=== PATIENT | female | born 2005 | race Hispanic/Latino ===

== ENCOUNTER 2024-06-13 14:15 | Emergency (ER) | payer BC ==
--- OUTSIDE RECORDS SUMMARY | 2024-06-13 14:18 | XMS REPORT | Continuity of Care Document ---
Author Name Unknown Address [address] [facility] [address] [place] [address] [facility] thconnect Address [address] [facility] [address] [place] [address] Care Team Providers Care Engineering Model Maker Name Role Phone Pcp, Patient Does Not Have A Primary Care Physic elena Neo Gonsales Attending Clinician Unavailable MEDINA CARTWRIGHT Attending Clinician Unavailable Medina Cartwright PA-C Attending Clinician [phone] Unknown, Attending Attending Clinician Unavailab jimi SALMERON Attending Clinician Unavailable Laurent Hutchins Attending Clinician [phone] LAURENT PINO Attending Clinician Unavailable LEESA_GCBZW_Rajania_S Attending Clinician Unavaila Gabriela Mohamud Attending Clinician [phone] CARLOS_Tylor Admitting Clinician Unavailable LEESA_GCBZW_Kadiyala_S Admitting Clinician Unavaila ble Payers Payer Name Policy Type Policy Number Effective Date Expiration Date Source BLUE ESSENTIALS HMO [id number] 2023 00:00:00 [place] [id number] 2020 00:00:00 Blue Cross Blue Shield HMO 6 [id number] 2020 00:00:00 [facility] Problems Condition Name Condition Details Condition Category Status Onset Date Resolution Date Last Treatment Date Treating Clinician Comments Source [id number] Plantar wart Problem [facility] [id number] Acne vulgaris Problem [facility] [id number] ESTHER (generaliz ed anxiety disorder) Problem [facility] Acute lymphadeni tis Acute lymphadeni tis Problem [facility] Ulcer of mouth Mouth ulcers Problem [facility] Attention deficit disorder ADD (attention deficit disorder) Problem [facility] [id number] Unable to concentrat e Problem [facility] Allergies, Adverse Reactions, Alerts Allergy Name Allergy Type Status Severity Reaction(s) Onset Date Inactive Date Treating Clinician Comments Source NO KNOWN ALLERGIE S Drug Class Active [facility] Social History Social Habit Start Date Stop Date Quantity Comments Source Sexual orientation U [facility] History of Tobacco Use [facility] Sex Assigned At 2005 00:00:00 2005 00:00:00 [facility] Smoking Status Start Date Stop Date Source Tobacco smoking consumption unknown [facility] Never Smoker [facility] Medications Ordered Medication Name Filled Medication Name Start Date Stop Date Current Medication? Ordering Clinician Indication Dosage Frequency Signature (SIG) Comments Components Source Pseudoeph-B romphen-DM 30-2-10 MG/5ML Pseudoeph-B romphen-DM 30-2-10 MG/5ML 06-17 00:00: 00 06-24 00:00 :00 No 5{ml_as _needed } QID Pseudoeph- Bromphen-D M 30-2-10 MG/5ML Pseudoeph-B romphen-DM 30-2-10 MG/5ML Pseudoeph-B romphen-DM 30-2-10 MG/5ML 06-17 00:00: 00 06-24 00:00 :00 No 5{ml_as _needed } QID Pseudoeph- Bromphen-D M 30-2-10 MG/5ML Pseudoeph-B romphen-DM 30-2-10 MG/5ML Pseudoeph-B romphen-DM 30-2-10 MG/5ML 2-0 -29 00:00: 00 06-24 00:00 :00 No 5{ml_as _needed } QID Pseudoeph- Bromphen-D M 30-2-10 MG/5ML methylPREDN ISolone 4 MG methylPREDN ISolone 4 MG 0 - 00:00: 00 06-23 00:00 :00 No QD methylPRED NISolone 4 MG methylPREDN ISolone 4 MG methylPREDN ISolone 4 MG 0 06-17 00:00: 00 06-23 00:00 :00 No QD methylPRED NISolone 4 MG methylPREDN ISolone 4 MG methylPREDN ISolone 4 MG 0 06-17 00:00: 00 06-23 00:00 :00 No QD methylPRED NISolone 4 MG Polymyxin B-Trimethop rim 62220-3.1 UNIT/ML Polymyxin B-Trimethop rim 78372-6.1 UNIT/ML 0 04-08 00:00: 00 04-15 00:00 :00 No 1{drop_ into_af fected_ eye} QID Polymyxin B-Trimetho prim 68130-5.1 UNIT/ML Amoxicillin -Pot Clavulanate 875-125 MG Amoxicillin -Pot Clavulanate 875-125 MG 2020-09 00:00: 00 08-15 00:00 :00 No 1{table t} BID Medrol 4 MG Medrol 4 MG 2020-09 00:00: 00 08-11 00:00 :00 No Azithromyci n 250 MG Azithromyci n 250 MG 2020-09 00:00: 00 08-01 00:00 :00 No QD Azithromyc in 250 MG Escitalopra m Oxalate 10 MG Escitalopra m Oxalate 10 MG 12-15 00:00: 00 No 1{table t} QD traZODone HCl 50 MG traZODone HCl 50 MG 12-15 00:00: 00 No 1{table t_at_be dtime_a s_neede d} QD traZODone HCl 50 MG traZODone HCl 50 MG 2020-0 12-15 00:00: 00 No 1{table t_at_be dtime_a s_neede d} QD traZODone HCl 50 MG Escitalopra m Oxalate 10 MG Escitalopra m Oxalate 10 MG 2020-0 12-15 00:00: 00 No 1{table t} QD Escitalopr am Oxalate 10 MG traZODone HCl 50 MG traZODone HCl 50 MG 2020-0 12-15 00:00: 00 No 1{table t_at_be dtime_a s_neede d} QD traZODone HCl 50 MG Escitalopra m Oxalate 10 MG Escitalopra m Oxalate 10 MG 2020-0 12-15 00:00: 00 No 1{table t} QD Escitalopr am Oxalate 10 MG traZODone HCl 50 MG traZODone HCl 50 MG 2020-0 12-15 00:00: 00 No 1{table t_at_be dtime_a s_neede d} QD traZODone HCl 50 MG Escitalopra m Oxalate 10 MG Escitalopra m Oxalate 10 MG 12-15 00:00: 00 No 1{table t} QD Escitalopr am Oxalate 10 MG traZODone HCl 50 MG traZODone HCl 50 MG 2020-0 12-15 00:00: 00 No 1{table t_at_be dtime_a s_neede d} QD traZODone HCl 50 MG Escitalopra m Oxalate 10 MG Escitalopra m Oxalate 10 MG 2020-0 12-15 00:00: 00 No 1{table t} QD Escitalopr am Oxalate 10 MG traZODone HCl 50 MG traZODone HCl 50 MG 2020-0 12-15 00:00: 00 No 1{table t_at_be dtime_a s_neede d} QD traZODone HCl 50 MG Escitalopra m Oxalate 10 MG Escitalopra m Oxalate 10 MG 2020-0 12-15 00:00: 00 No 1{table t} QD Escitalopr am Oxalate 10 MG traZODone HCl 50 MG traZODone HCl 50 MG 2020-0 12-15 00:00: 00 No 1{table t_at_be dtime_a s_neede d} QD traZODone HCl 50 MG Escitalopra m Oxalate 10 MG Escitalopra m Oxalate 10 MG 2020-0 12-15 00:00: 00 No 1{table t} QD Escitalopr am Oxalate 10 MG Microgestin 1/20 1-20 MG-MCG Microgestin 1/20 1-20 MG-MCG No 1{table t} QD Microgestin 1/20 1-20 MG-MCG Microgestin 1/20 1-20 MG-MCG No 1{table t} QD Microgesti n /20 1-20 MG-MCG Microgestin 1/20 1-20 MG-MCG Microgestin 1/20 1-20 MG-MCG No 1{table t} QD Microgesti n /20 1-20 MG-MCG Microgestin 1/20 1-20 MG-MCG Microgestin 1/20 1-20 MG-MCG No 1{table t} QD Microgesti n /20 1-20 MG-MCG Microgestin 1/20 1-20 MG-MCG Microgestin 1/20 1-20 MG-MCG No 1{table t} QD Microgesti n 1/20 1-20 MG-MCG Microgestin 1/20 1-20 MG-MCG Microgestin 1/20 1-20 MG-MCG No 1{table t} QD Microgesti n /20 1-20 MG-MCG Microgestin 1/20 1-20 MG-MCG Microgestin 1/20 1-20 MG-MCG No 1{table t} QD Microgesti n 1/20 1-20 MG-MCG drospirenon e 3 mg-ethinyl estradiol 0.02 mg tablet TAKE 1 TABLET BY MOUTH EVERY DAY drospirenon e 3 mg-ethinyl estradiol 0.02 mg tablet TAKE 1 TABLET BY MOUTH EVERY DAY No drospireno ne 3 mg-ethinyl estradiol 0.02 mg tablet TAKE 1 TABLET BY MOUTH EVERY DAY [facility] Xeomin 100 unit intramuscul ar solution Inject 6 units by intramuscul ar route. Xeomin 100 unit intramuscul ar solution Inject 6 units by intramuscul ar route. No 6unit(s ) Xeomin 100 unit intramuscu lar solution Inject 6 units by intramuscu lar route. [facility] BD Luer-Lilibeth Syringe 3 mL 23 gauge x 1 1/2" USE DIRECTED BD Luer-Lilibeth Syringe 3 mL 23 gauge x 1 1/2" USE DIRECTED No BD Luer-Lilibeth Syringe 3 mL 23 gauge x 1 1/2" USE DIRECTED [facility] ondansetron 4 mg disintegrat ing tablet TAKE 1 TABLET BY MOUTH EVERY 8 HOURS NEEDED FOR NAUSEA AND VOMITING . ondansetron 4 mg disintegrat ing tablet TAKE 1 TABLET BY MOUTH EVERY 8 HOURS NEEDED FOR NAUSEA AND VOMITING . No ondansetro n 4 mg disintegra ting tablet TAKE 1 TABLET BY MOUTH EVERY 8 HOURS NEEDED FOR NAUSEA AND VOMITING . [facility] Vital Signs Vital Name Observation Time Observation Value Comments S ource BP Systolic 2024-06-06 00:00:00 124 mm[Hg] [facility] BMI (Body Mass Index) 2024-06-06 00:00:00 21.8 kg/m2 [facility] BP Diastolic 2024-06-06 00:00:00 84 mm[Hg] [facility] Height 2024-06-06 00:00:00 63 [in_i] [facility] Body Weight 2024-06-06 00:00:00 1972 [oz_av] [facility] BMI (Body Mass Index) 2023-12-07 00:00:00 20.8 kg/m2 [facility] BP Systolic 2023-12-07 00:00:00 115 mm[Hg] [facility] Body Weight 2023-12-07 00:00:00 1882 [oz_av] [facility] Height 2023-12-07 00:00:00 63 [in_i] [facility] BP Diastolic 2023-12-07 00:00:00 78 mm[Hg] [facility] Systolic blood pressure 2023-10-20 19:18:00 134 mm[Hg] [facility] Diastolic blood pressure 2023-10-20 19:18:00 83 mm[Hg] [facility] Heart rate 2023-10-20 19:18:00 96 /min [facility] Body temperature 2023-10-20 19:18:00 36.83 Alina [facility] Respiratory rate 2023-10-20 19:18:00 18 /min [facility] Body weight 2023-10-20 19:18:00 54.931 kg [facility] Oxygen saturation in Arterial blood by Pulse oximetry 2023-10-20 19:18:00 100 /min [facility] Height 2023-08-17 00:00:00 63 [in_i] [facility] BP Systolic 2023-08-17 00:00:00 113 mm[Hg] [facility] BMI (Body Mass Index) 2023-08-17 00:00:00 22.4 kg/m2 [facility] Body Weight 2023-08-17 00:00:00 2021 [oz_av] [facility] BP Diastolic 2023-08-17 00:00:00 76 mm[Hg] [facility] BMI 2023-08-06 16:02:00 21.87 kg/m2 [facility] Oxygen saturation in Arterial blood by Pulse oximetry 2023-08-06 16:02:00 99 /min [facility] Systolic blood pressure 2023-08-06 16:02:00 123 mm[Hg] [facility] Diastolic blood pressure 2023-08-06 16:02:00 83 mm[Hg] [facility] Heart rate 2023-08-06 16:02:00 90 /min [facility] Body temperature 2023-08-06 16:02:00 36.94 Alina [facility] Respiratory rate 2023-08-06 16:02:00 20 /min [facility] Body height 2023-08-06 16:02:00 160 cm [facility] Body weight 2023-08-06 16:02:00 55.991 kg [facility] BP Diastolic 2023-04-20 00:00:00 75 mm[Hg] [facility] BMI (Body Mass Index) 2023-04-20 00:00:00 4.5 kg/m2 [facility] Height 2023-04-20 00:00:00 63 [in_i] [facility] BP Systolic 2023-04-20 00:00:00 116 mm[Hg] [facility] Body Weight 2023-04-20 00:00:00 410 [oz_av] [facility] height 2022-09-30 12:00:00 64 [in_i] [facility] weight 2022-09-30 12:00:00 130 [lb_av] Comm on [facility] temperature 2022-09-30 12:00:00 98 [degF] Comm on [facility] bmi 2022-09-30 12:00:00 22.31 kg/m2 Comm on [facility] height 2022-06-17 10:00:00 64 [in_i] Commo n [facility] weight 2022-06-17 10:00:00 128 [lb_av] Comm on [facility] bmi 2022-06-17 10:00:00 21.97 kg/m2 Comm on [facility] height 2022-04-22 09:00:00 64 [in_i] Commo n [facility] weight 2022-04-22 09:00:00 128.6 [lb_av] Co mmon [facility] temperature 2022-04-22 09:00:00 97.0 [degF] Com mon [facility] bmi 2022-04-22 09:00:00 22.07 kg/m2 Comm on [facility] oximetry 2022-04-22 09:00:00 100 % Commo n [facility] respiratory rate 2022-04-22 09:00:00 18 /min Common [facility] blood pressure systolic 2022-04-22 09:00:00 123 mm[Hg] [facility] blood pressure diastolic 2022-04-22 09:00:00 76 mm[Hg] [facility] height 2022-04-08 16:20:00 64 [in_i] Commo n [facility] weight 2022-04-08 16:20:00 129 [lb_av] Comm on [facility] temperature 2022-04-08 16:20:00 98.1 [degF] Com [facility] bmi 2022-04-08 16:20:00 22.14 kg/m2 Comm on [facility] oximetry 2022-04-08 16:20:00 99 % Commo n [facility] respiratory rate 2022-04-08 16:20:00 16 /min [facility] blood pressure systolic 2022-04-08 16:20:00 108 mm[Hg] [facility] blood pressure diastolic 2022-04-08 16:20:00 63 mm[Hg] [facility] height 2022-01-19 14:30:00 64 [in_i] Commo n [facility] weight 2022-01-19 14:30:00 127 [lb_av] Comm on [facility] temperature 2022-01-19 14:30:00 98.1 [degF] Com mon [facility] bmi 2022-01-19 14:30:00 21.8 kg/m2 Commo n [facility] blood pressure systolic 2022-01-19 14:30:00 108 mm[Hg] [facility] blood pressure diastolic 2022-01-19 14:30:00 68 mm[Hg] [facility] height 2021-08-05 08:20:00 64 [in_i] Commo n [facility] weight 2021-08-05 08:20:00 126 [lb_av] Comm on [facility] temperature 2021-08-05 08:20:00 97.4 [degF] Com mon [facility] bmi 2021-08-05 08:20:00 21.63 kg/m2 Comm on [facility] bmi 2021-07-27 14:30:00 21.63 kg/m2 Comm on [facility] height 2021-07-27 14:30:00 64 [in_i] Commo n [facility] weight 2021-07-27 14:30:00 126 [lb_av] Comm on [facility] temperature 2021-07-27 14:30:00 98 [degF] Comm on [facility] Procedures Procedure Date / Time Performed Performing Clinician Source US, pelvis, transabdominal + transvaginal 2024-06-06 00:00:00 [facility] POCT TEST 2023-10-20 19:32:00 Raiza Cartwright [facility] POCT SARS-COV-2 ANTIGEN (BINAX NOW) 2023-10-20 19:32:00 Medina Cartwright [facility] POCT MOLECULAR FLU 2023-10-20 19:16:00 Unknown, Attend [facility] POCT SARS-COV-2 ANTIGEN (BINAX NOW) 2023-08-06 16:15:00 Laurent Pino [facility] POCT MOLECULAR FLU 2023-08-06 16:09:00 Unknown, Attend [facility] POCT MOLECULAR STREP 2023-08-06 16:06:00 Unknown, Attdash sargent [facility] Encounters Start Date/Time End Date/Time Encounter Type Admission Type Attending Clinicians Care Facility Care Department Encounter ID Source 2022-09-30 11:04[facility] [id number] [facility] 2022-06-28 10:54:01 [facility] [id number] [facility] 2022-06-17 09:31:01 Outpatient Gonsales, Neo [facility] [id number] [facility] 2022-04-01 16:12:01 Outpatient Gonsales, Neo [facility] [id number] [facility] 2022-01-28 13:36:01 Outpatient Gonsales, Neo [facility] [id number] [facility] 2022-01-19 07:16:00 Outpatient Gonsales, Neo [facility] [id number] [facility] 2021-10-14 14:36:36 Outpatient Gonsales, Neo [facility] [id number] [facility] 2021-10-14 14:14:15 Outpatient Gonsales, Neo [facility] [id number] [facility] 2021-10-14 12:41:58 Outpatient Gonsales, Neo [facility] [id number] [facility] 2021-10-14 12:35:27 Outpatient Gonsales, Neo [facility] [id number] [facility] 2021-10-14 12:33:36 Outpatient Gonsales, Neo [facility] STLC [id number] [facility] 2021-10-14 12:14:07 Outpatient Gonsales, Neo [facility] [id number] [facility] 2021-10-14 12:13:35 Outpatient Gonsales, Neo [facility] [id number] [facility] 2021-10-14 12:13:05 Outpatient Gonsales, Neo [facility] [id number] [facility] 2021-10-14 12:12:49 Outpatient Gonsales, Neo [facility] [id number] [facility] 2021-10-14 12:09:15 [facility] [id number] [facility] 2021-10-14 12:05:33 [facility] [id number] [facility] 2021-10-14 11:58:05 [facility] [id number] [facility] 2021-10-14 11:57:28 [facility] [id number] [facility] 2021-10-14 11:54:58 [facility] [id number] [facility] 2021-10-14 11:54:43 [facility] [id number] [facility] 2024-06-06 00:00:00 2024-06-06 00:00:00 Gabreila Sauceda MSN, MANAGEMENT TRAINEE, REMEDY DEVELOPER-C: [address], [place] [address] , Ph. [facility], Gabriela Sauceda, MSN, REMEDY DEVELOPER-C [id number] Critical access hospital [facility] 2023-12-07 00:00:00 2023-12-07 00:00:00 Gabriela Sauceda, MSN, MANAGEMENT TRAINEE, REMEDY DEVELOPER-C: [address], [place] [address] , Ph. [facility], Gabriela Sauceda, MSN, REMEDY DEVELOPER-C [id number] Critical access hospital [facility] 2023-10-20 13:00:00 2023-10-20 13:46:20 Outpatient MEDINA TAN [facility] [id number] [facility] 2023-10-20 13:00:00 2023-10-20 13:46:20 Urgent Care Medina Cartwright Unknown, Attending [facility] [id number] [facility] 2023-08-26 00:00:00 2023-08-26 00:00:00 Outpatient SISSON_C [facility] [id number] 2023-08-17 00:00:00 2023-08-17 00:00:00 Outpatient SISSON_C [facility] [id number] 2023-08-17 00:00:00 2023-08-17 00:00:00 Gabriela Sauceda, MSN, MANAGEMENT TRAINEE, REMEDY DEVELOPER-C: [address], [address], [place] [address] , Ph. [facility], Gabriela Sauceda, MSN, REMEDY DEVELOPER-C [id number] [facility] 2023-08-06 09:40:00 2023-08-06 10:00:00 Urgent Care Laurent Pino Unknown, Attending [facility] MEDICAL OFF[facility] BU[facility] [id number] [facility] 2023-08-06 09:40:00 2023-08-06 09:40:00 Outpatient LAURENT SANCHEZ [facility] [id number] [facility] 2023-07-19 00:00:00 2023-07-19 00:00:00 Outpatient GC_GCBZW_Ka diyala_S [facility] [id number] [facility] 2023-07-18 00:00:00 2023-07-18 00:00:00 Outpatient GC_GCBZW_Ka diyala_S [facility] [id number] [facility] 2023-04-20 00:00:00 2023-04-20 00:00:00 Outpatient SISSON_C [facility] [id number] [facility] 2023-04-20 00:00:00 2023-04-20 00:00:00 Gabriela Sauceda, MSN, MANAGEMENT TRAINEE, REMEDY DEVELOPER-C: [address], [address], [place] [address] , Ph. [facility], Gabriela Sauceda, MSN, REMEDY DEVELOPER-C [id number] [facility] 2022-10-26 00:00:00 2022-10-26 00:00:00 Outpatient SISSON_C [facility] [id number] [facility] 2022-09-30 00:00:00 2022-09-30 00:00:00 (TEL) STLMLC STLMLC [id number] [facility] 2022-09-30 00:00:00 2022-09-30 00:00:00 OFFICE VISIT ESTAB PT LEVEL 3 STLMLC STLMLC [id number] [facility] 2022-09-22 00:00:00 2022-09-22 00:00:00 (TEL) STLMLC STLMLC [id number] [facility] 2022-06-17 00:00:00 2022-06-17 00:00:00 OFFICE VISIT EST PT LEVEL 3 STLMLC STLMLC [id number] [facility] 2022-06-17 00:00:00 2022-06-17 00:00:00 (TEL) STLMLC STLMLC [id number] [facility] 2022-04-22 00:00:00 2022-04-22 00:00:00 PREV VISIT EST AGE 18-39 STLMLC STLMLC [id number] [facility] 2022-04-08 00:00:00 2022-04-08 00:00:00 OFFICE VISIT EST PT LEVEL 3 [facility] [id number] [facility] 2022-03-25 00:00:00 2022-03-25 00:00:00 (TEL) [facility] [id number] [facility] 2022-03-02 01:23:00 2022-03-02 01:23:00 Outpatient CARLOS_C [facility] [id number] [facility] 2022-03-02 00:00:00 2022-03-02 00:00:00 Outpatient Gabriela Sauceda [facility] [id number] 2022-03-02 00:00:00 2022-03-02 00:00:00 Gabriela Sauceda, MSN, MANAGEMENT TRAINEE, REMEDY DEVELOPER-C: [address], [address], [place] [address] , Ph. [facility], Gabriela Sauceda, MSN, REMEDY DEVELOPER-C [id number] Critical access hospital [facility] 2022-02-26 02:53:00 2022-02-26 02:53:00 Outpatient CARLOS_Tylor [facility] [id number] [facility] 2022-02-10 00:00:00 2022-02-10 00[facility]00[facility] [id number] 2022-02-10 00:00:00 2022-02-10 00:00:00 (TEL) [facility] [id number] [facility] 2022-02-03 00:00:00 2022-02-03 00[facility]00[facility] [id number] 2022-01-26 00:00:00 2022-01-26 00:00:00 OFFICE VISIT ESTAB PT LEVEL 2 STLMLC STLMLC [id number] [facility] 2022-01-25 00:00:00 2022-01-25 00:00:00 (TEL) STLMLC STLMLC [id number] [facility] 2022-01-21 00:00:00 2022-01-21 00:00:00 (TEL) STLMLC STLMLC [id number] [facility] 2022-01-19 00:00:00 2022-01-19 00:00:00 OFFICE VISIT NEW PT LEVEL 3 STLMLC STLMLC [id number] [facility] 2022-01-05 00:00:00 2022-01-05 00:00:00 (TEL) STLMLC STLMLC [id number] [facility] 2021-12-28 00:00:00 2021-12-28 00:00:00 (TEL) STLMLC STLMLC [id number] [facility] 2021-10-02 00:00:00 2021-10-02 00:00:00 (TEL) STLMLC STLMLC [id number] [facility] 2021-08-05 00:00:00 2021-08-05 00:00:00 OFFICE VISIT EST PT LEVEL 3 STLMLC STLMLC [id number] [facility] 2021-07-27 00:00:00 2021-07-27 00:00:00 OFFICE VISIT EST PT LEVEL 3 STLMLC STLMLC [id number] [facility] 2020-12-15 00:00:00 2020-12-15 00:00:00 Outpatient STLMLC STLMLC [id number] [facility] 2020-11-11 00:00:00 2020-11-11 00:00:00 Outpatient STLMLC STLMLC [id number] [facility] 2020-09-22 00:00:00 2020-09-22 00:00:00 Outpatient STLMLC STLMLC [id number] [facility] 2020-09-03 00:00:00 2020-09-03 00:00:00 Outpatient STLMLC STLMLC [id number] [facility] 2020-09-01 00:00:00 2020-09-01 00:00:00 Outpatient STLMLC STLMLC [id number] [facility] 2020-08-20 00:00:00 2020-08-20 00:00:00 Outpatient STLMLC STLMLC [id number] [facility] 2020-07-28 00:00:00 2020-07-28 00:00:00 Outpatient STLMLC STLMLC [id number] [facility] 2020-07-01 00:00:00 2020-07-01 00:00:00 Outpatient STLMLC STLMLC [id number] [facility] Results Test Description Test Time Test Comments Results Result Co mments Source [facility] SARS-COV-2 ANTIGEN (BINAX NOW)2023-10-20 19:32:00* Test Item Value Reference Range Interpretation Comme nts POCT SARS-COV-2 ANTIGEN (santiago t code = 70832-1) Not Detected Not Detected On board controls acceptable with C Line (test code = 3574) Yes [facility] Molecular [id number] 19:28:20* Test Item Value Reference Range Interpretation Comme nts POCT Molecular FluA (test co de = 64549-9) Negative Negative POCT Molecular FluB (test co de = 19843-4) Negative Negative Lab Interpretation (test cod e = 05364-8) Normal [facility] MOLECULAR [id number] 16:21:14* Test Item Value Reference Range Interpretation Comme nts POCT Molecular FluA (test co de = 22460-8) Negative Negative POCT Molecular FluB (test co de = 62365-3) Negative Negative Lab Interpretation (test cod e = 68524-8) Normal [facility] SARS-COV-2 ANTIGEN (BINAX NOW)2023-08-06 16:15:00* Test Item Value Reference Range Interpretation Comme nts POCT SARS-COV-2 ANTIGEN (santiago t code = 30800-5) Not Detected Not Detected On board controls acceptable with C Line (test code = 3574) [facility] [id number] 16:14:06* Test Item Value Reference Range Interpretation Comme nts POCT Molecular Strep (test c ode = 37131-4) Negative Negative Lab Interpretation (test cod e = 01422-9) Normal [facility] [id number] 00:00:00ResultPOC, COVID 19 Antigen + Flu by SofiaPOC, COVID 19 Antigen + Flu by Paulina
--- NOTE | 2024-06-13 14:48 | RAD REPORT ---
EXAM: Head Brain Wo Cont HISTORY: head injury COMPARISON: None TECHNIQUE: Multiple contiguous axial images were obtained for a CT of the brain without contrast. Sag ittal and coronal reformats were performed. One or more of the following dose reduction techniques were used: Automated exposure control, adjus tment of the mA and kV according to patient size, and iterative reconstruction. Unless otherwise specified, incidental findings do not require dedicated imaging follow-up. FINDINGS: No evidence of hydrocephalus, intracranial hemorrhage, or extra-axial fluid collection. The brain is normal in morphology. The calvarium is intact. The visualized paranasal sinuses and mastoid air cells are essentially clear . IMPRESSION: No evidence of acute intracranial abnormality.
--- NOTE | 2024-06-13 15:26 | EDPHYS ---
Physician Documentation [facility] Name: Juan Manuel Givens Age: 18 yrs Sex: Female : 2005 Arrival Date: 06/13/2024 Time: 14:15 Bed 9 Private MD: ED Physician Fabrice Montiel HPI: 06/13 14:30 This 18 yrs old Female presents to ER via Ambulatory with complaints of Head ec2 Injury-Adult. 14:30 Patient arrives today for evaluation after head injury. States that yesterday she ec2 struck her head. No LOC, has been having issues with concentration as well as some dizziness and lightheadedness. No vomiting. No other concerns.. 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 - Infectious Disease History:: Denies. - Social history:: Smoking status: Reported history of juuling and/or vaping. ROS: 14:30 Constitutional: as per hpi ec2 Exam: 14:30 Constitutional: GEN: NAD Head: atraumatic Eyes: EOMI Ears: External ears are ec2 normal. CV: regular rate LUNGS: no respiratory distress ABD: non-distended SKIN: no evidence of rashes MSK: no evidence of trauma. Neuro: Cranial nerves II through XII intact, strength intact all 4 extremities, no focal neurologic deficit appreciated. Vital Signs: 14:26 BP 138 / 97; Pulse 70; Resp 18; Temp 98; Pulse Ox 100% ; Weight 54.43 kg; Height 5 ft. db 3 in. ; 15:39 BP 122 / 85; Pulse 71; Resp 16; Temp 98.4; Pulse Ox 100% ; me1 14:26 Body Mass Index 21.26 (54.43 kg, 160.02 cm) db [place] Coma Score: 14:26 Eye Response: spontaneous(4). Motor Response: obeys commands(6). Verbal Response: db oriented(5). Total: 15. MDM: 14:24 Patient medically screened. ec2 14:30 Data reviewed: vital signs. ED course: Patient arrives today for evaluation of a ec2 headache after recent head injury. Examination remarkable for neuro intact individuals otherwise in no acute distress with a reassuring examination. Will obtain CT scan of the head to rule out for intracranial injury. Suspect concussion. . 15:25 ED course: CT scan of the head shows no acute intracranial process. Suspect concussion. ec2 Will discharge home. Return precautions given. . 06/13 14:25 Order name: CT Head Brain wo Cont; Complete Time: 15:25 ec2 Administered Medications: No medications were administered Disposition Summary: 06/13/24 15:25 Discharge Ordered Notes: Location: Home ec2 Condition: Stable ec2 Diagnosis - Postconcussional syndrome ec2 Followup: ec2 - With: Private Physician - When: - Reason: Re-evaluation by your physician Discharge Instructions: - Discharge Summary Sheet ec2 - Concussion, Adult, [id number] ec2 Forms: - School release form ec2 - Work release form ec2 - Medication Reconciliation Form ec2 - Antibiotic Education ec2 - Prescription Opioid Use ec2 - Patient Portal Instructions ec2 - Leadership Thank You Letter ec2 Prescriptions: - Compazine 10 mg Oral Tablet - take 1 tablet ORAL route every 8 hours As needed; 20 tablet; Refills: 0, ec2 Product Selection Permitted Signatures: Dispatcher [employer] Maryse Godoy RN RN db Corral, Edwin, MD MD ec2 Corrections: (The following items were deleted from the chart) 14:29 14:29 Home Meds: None; stefanie watts 14:30 14:29 Social history: Smoking status: Patient denies any tobacco usage or history of. dbdb
--- NOTE | 2024-06-13 15:26 | ER ---
Nurse's Notes [facility] Name: Juan Manuel Givens Age: 18 yrs Sex: Female : 2005 Arrival Date: 06/13/2024 Time: 14:15 Bed 9 Private MD: Diagnosis: Postconcussional syndrome Presentation: 06/13 14:26 Chief complaint: Patient states: YESTERDAY WAS WORKING AND A STUDENT CLIMBED ON PT. PT db LOST BALANCE AND HIT HEAD ON LEFT TEMPORAL SIDE. STATES HAD HEADACHE AND LATER DIZZY WHILE TRYING TO DO HOMEWORK. STATES FEELS LIKE HAS A "FOG". Coronavirus screen: Client denies travel out of the [place] in the last 14 days. At this time, the client does not indicate any symptoms associated with coronavirus-19. Ebola Screen: Patient negative for fever greater than or equal to 101.5 degrees Fahrenheit, and additional compatible Ebola Virus Disease symptoms Patient denies exposure to infectious person. Patient denies travel to an Ebola-affected area in the 21 days before illness onset. No symptoms or risks identified at this time. Mechanism of Injury: resulted from a fall, from a standing position. Initial Sepsis Screen: Does the patient meet any 2 criteria? No. Patient's initial sepsis screen is negative. Does the patient have a suspected source of infection? No. Patient's initial sepsis screen is negative. Risk Assessment: Do you want to hurt yourself or someone else? Patient reports no desire to harm self or others. Onset of symptoms was June 12, 2024. 14:26 Method Of Arrival: Ambulatory db 14:26 Acuity: ROCKY 3 db Triage Assessment: 14:29 General: Appears in no apparent distress. comfortable, Behavior is calm, cooperative. db Pain: Complains of pain in head. Neuro: Level of Consciousness is awake, alert, obeys commands, Oriented to person, place, time, situation, [facility] Assistant Director are equal bilaterally Moves all extremities. Gait is steady, Speech is normal, Facial symmetry appears normal, Pupils are PERRLA, Reports. Respiratory: Airway is patent Respiratory effort is even, unlabored, Respiratory pattern is regular, symmetrical. 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 - Infectious Disease History:: Denies. - Social history:: Smoking status: Reported history of juuling and/or vaping. Screenin:00 [facility] ED Fall Risk Assessment (Adult) History of falling in the last 3 months, me1 including since admission No falls in past 3 months (0 pts) Confusion or Disorientation No (0 pts) Intoxicated or Sedated No (0 pts) Impaired Gait No (0 pts) Mobility Assist Device Used No (0 pt) Altered Elimination No (0 pt) Score/Fall Risk Level 0 - 2 = Low Risk Maintained a safe environment, Provided non-skid footwear, Hourly rounding (assess needs \\T\\ fall precautionary measures) done. Abuse screen: Denies threats or abuse. Nutritional screening: No deficits noted. Tuberculosis screening: No symptoms or risk factors identified. Assessment: 15:00 General: Appears uncomfortable, well groomed, well developed, well nourished, Behavior me1 is calm, cooperative, appropriate for age, Reports YESTERDAY WAS WORKING AND A STUDENT CLIMBED ON PT. PT LOST BALANCE AND HIT HEAD ON LEFT TEMPORAL SIDE. STATES HAD HEADACHE AND LATER DIZZY WHILE TRYING TO DO HOMEWORK. STATES FEELS LIKE HAS A "FOG". Pain: Complains of pain in head Pain does not radiate. Pain currently is 5 out of 10 on a pain scale. Quality of pain is described as aching, Pain began suddenly, 1 day ago. Is continuous. Neuro: Level of Consciousness is awake, alert, obeys commands, Oriented to person, place, time, situation, Appropriate for age. Cardiovascular: Patient's skin is warm and dry. Respiratory: Airway is patent Respiratory effort is even, unlabored, Respiratory pattern is regular, symmetrical. GI: No signs and/or symptoms were reported involving the gastrointestinal system. : No signs and/or symptoms were reported regarding the genitourinary system. EENT: No signs and/or symptoms were reported regarding the EENT system. Derm: Skin is intact, is healthy with good turgor, Skin is pink, warm \\T\\ dry. Musculoskeletal: No signs and/or symptoms reported regarding the musculoskeletal system. Vital Signs: 14:26 BP 138 / 97; Pulse 70; Resp 18; Temp 98; Pulse Ox 100% ; Weight 54.43 kg; Height 5 ft. db 3 in. ; 15:39 BP 122 / 85; Pulse 71; Resp 16; Temp 98.4; Pulse Ox 100% ; me1 14:26 Body Mass Index 21.26 (54.43 kg, 160.02 cm) db [place] Coma Score: 14:26 Eye Response: spontaneous(4). Motor Response: obeys commands(6). Verbal Response: db oriented(5). Total: 15. ED Course: 14:18 Patient arrived in ED. mr 14:24 Fabrice Montiel MD is Attending Physician. ec2 14:29 Triage completed. db 14:[address] via wheelchair. db 14:31 Arm band placed on Patient placed in waiting room. db 14:37 CT Head Brain wo Cont In Process Unspecified. EDKS 15:00 Yamila Narvaez, RN is Primary Nurse. me1 15:00 Patient has correct armband on for positive identification. Bed in low position. Call me1 light in reach. Side rails up X 1. Provided Education on: POC. Verbalized understanding.. Client placed on continuous cardiac and pulse oximetry monitoring. NIBP monitoring applied. Pulse ox on. NIBP on. 15:00 No provider procedures requiring assistance completed. Patient did not have IV access me1 during this emergency room visit. Administered Medications: No medications were administered Medication: 15:00 VIS not applicable for this client. me1 Outcome: 15:25 Discharge ordered by . ec2 15:39 Discharged to home ambulatory, with family, me1 15:39 Condition: stable 15:39 Discharge instructions given to patient, Instructed on discharge instructions, follow up and referral plans. medication usage, Demonstrated understanding of instructions, follow-up care, medications, Prescriptions given X 1, 15:39 Patient left the ED. me1 Signatures: Dispatcher [employer] [facility] Madyson Ramirez, Reg Reg Maryse Tidwell, RN RN db Yamila Narvaez, RN RN me1 Fabrice Montiel MD MD ec2 Corrections: (The following items were deleted from the chart) 14:29 14:29 Home Meds: None; db db 14:30 14:29 Social history: Smoking status: Patient denies any tobacco usage or history of. dbdb 15:00 14:26 Chief complaint: Patient states: YESTERDAY WAS WORKING AND A STUDENT CLIMBED ON me1 PT. PT LOST BALANCE AND HIT HEAD ON LEFT TEMPORAL SIDE. STATES HAD HEADACHE AND LATER DIZZY WHILE TRYING TO DO HOMEWORK. STATES FEELS LIKE HAS A "FOG" db
[2024-06-13 16:00] VITALS: O2SAT 100
[2024-06-13 16:01] VITALS: BP 122/85; TEMP 98.4
== END 2024-06-13 15:39 | disposition home or self-care (01) ==
LOC: ER 14:15
DX: R42 Dizziness and giddiness (principal); F07.81 Postconcussional syndrome
CPT/HCPCS: 70450; 99284